=== PATIENT | male | born 1955 | race Caucasian/White ===

== ENCOUNTER 2018-12-18 20:33 | Inpatient (IN) | payer MEDICARE ==
[~2018-12-18] VITALS: Ht 188 cm; Wt 111.7 kg
--- NOTE | 2018-12-18 20:45 | NUR ---
PT. BIB SISTER WITH C/O LEFT SIDE CHEST PAIN X20 [employer]. SISTER REPORTS PT. TOLD HER IS CHEST WAS HURTING AND HE WAS CLUCHING HIS CHEST. REPROTS PT. HAS A HX ASBERGERS DISEASE AND IS NOT ABLE ALWAYS FEEL PAIN AND/OR BE ABLE TO DESCRIBE IT. STATES HE HAD A BYPASS JULY 2017. PT. STATES "FEELS LIKE SOMETHING IS POKING ME IN MY CHEST". DENIES FEELING SOB OR DIZZY. PT. UNABLE TO RATE THE PAIN ON SCALE 0-10. PT. AAOX4, TALKING AND RESPONDING APPROPRIATELY, BREATHING E/U. IN MODERATE DISTRESS, POINTING TO CHEST. PLACED ON FULL FURNACE CLERK, O2 PROVIDED AT 2L VIA NC. DR. HEMPHILL AT BEDSIDE FOR MSE.
[2018-12-18 21:17] LABS: BASOPHIL % 0.5 % (0-2); PLATELET COUNT 219 x10^3mcL (130-400); RED CELL DISTRIBUTION WIDTH 12.2 % (11.5-14.5)
--- NOTE | 2018-12-18 21:17 | NUR ---
NITRO SL AND NITRO PASTE GIVEN. PATIENT STATES HE IS UNSURE IF ITS HELPING PAIN. STATES CHEST PAIN "COMES AND GOES". SISTER AT BEDSIDE. WILL CONTINUE TO MONITOR.
[2018-12-18 21:24] LABS: CALCIUM 9.9 mg/dL (8.5-10.1); CARBON DIOXIDE 31.1 mmol/L (21-32); CREATININE SERUM 1.4 mg/dL (0.7-1.3)
[2018-12-18 21:38] LABS: ALBUMIN 3.3 g/dL (3.4-5.0); BILIRUBIN TOTAL 0.43 mg/dL (0.20-1.00); TOTAL PROTEIN, SERUM 7.6 g/dL (6.4-8.2)
--- NOTE | 2018-12-18 21:45 | NUR ---
PT. LAYING ON GURNEY IN POSITON OF COMFORT. BREATHING E/U. NOT IN ANY APPARENT DISTRESS AT THIS TIME. REPORTS CHEST PAIN IS STILL THERE. CALL LIGHT IN REACH, SISTER AT BEDSIDE, WILL CONTINUE TO MONITOR.
--- NOTE | 2018-12-18 22:10 | NUR ---
PT STATES "IT FEELS LIKE THE CHEST PAIN IS BETTER." WILL CONTINUE TO MONITOR.
--- NOTE | 2018-12-18 22:53 | NUR ---
PT. PROVIDED URINAL FOR URINE SAMPLE.
[2018-12-18] MEDS ORDERED: LIPI20 (22:54)
[2018-12-18] MEDS ORDERED: TOPROL XL25 MG (22:55)
[2018-12-18] MEDS ORDERED: KEPPRA1000 M1 (22:55)
[2018-12-18] MEDS ORDERED: AMIODARONE HCL200 MG (22:55)
[2018-12-18] MEDS ORDERED: LAMOTRIGINE150 M1 (22:55)
[2018-12-18] MEDS ORDERED: LASIX40 MG (22:55)
[2018-12-18] MEDS ORDERED: K-TAB10 MEQ (22:55)
[2018-12-18] MEDS ORDERED: ASPIR 8181 MG (22:56)
[2018-12-18] MEDS ORDERED: GINKGO BILOBA120 M1 (22:56)
[2018-12-18 23:09] LABS: MAGNESIUM 2.5 mg/dL (1.8-2.4); PHOSPHOROUS 2.6 mg/dL (2.5-4.9)
[2018-12-18 23:10] LABS: CHOLESTEROL/HDL RATIO 2.9
--- NOTE | 2018-12-18 23:15 | NUR ---
PT. STATES HE IS UNABLE TO PROVIDE SAMPLE AT THIS TIME.
--- NOTE | 2018-12-18 23:20 | NUR ---
REPORT GIVEN TO FOZIA DIAZ FOR FURTHER CARE OF PATIENT. ALL QUESTIONS AND CONCERNS ADDRESSED.
--- NOTE | 2018-12-18 23:36 | NUR ---
RECEIVED PT FROM ED VIA [facility], CAME IN DUE TO CHEST PRESSURE. AAOX3-4. ABLE TO FOLLOW SIMPLE COMMANDS. C/O THROBBING HEADACHE AND DIZZINESS. PUPILS ARE REACTIVE TO LIGHT, HAS HISTORY OF ASPERGER DISEASE. NO SOB NOTED, LUNG SOUNDS CTA. ON 2LPM/NC, O2 SAT=98%. C/O 6/10 MID PRESSURE CHEST PAIN, NON-RADIATING, SB W/ BBB ON THE MONITOR, HR AT 55. DENIES NUMBNESS/TINGLING SENSATION ON THE EXTREMITIES. W/ TRACE EDEMA ON BLE. C/O GAS IN THE ABDOMEN, LAST BM TODAY, DENIES ABDOMINAL PAIN/NAUSEA/VOMITING. IV SITE PATENT AND INTACT. PADDED SIDE RAILS UPX2. CALL LIGHT ON REACH. BED ALARM ON. HOB ELEVATED AT 30 DEG. ENDORSED TO PRIMARY NURSE ROBERTOILE FOR CONTINUITY OF CARE
[2018-12-18 23:41] VITALS: BP 138/77
--- NOTE | 2018-12-18 23:45 | NUR ---
PATIENT STATES HE DOES NOT WANT ANY PRN MEDICATION AT THIS TIME FOR HIS HEADACHE OR CHEST PAIN. PATIENT STATES HE JUST WANTS TO REST. BED LOCKED AND IN LOWEST POSITION. CALL LIGHT AND BEDSIDE TABLE WITHIN REACH. WILL CONTINUE TO MONITOR.
[2018-12-18 23:52] VITALS: Ht 188 cm; Wt 111.7 kg
[2018-12-19 05:20] VITALS: BP 113/69
--- NOTE | 2018-12-19 06:32 | NUR ---
PATIENT IS AWAKE. REPORTS HE HAS A HEADACHE, BUT DOES NOT WANT TYLENOL. NITRO PATCH ON LEFT CHEST REMOVED AT THIS TIME. IV INFUSING TO LH WITHOUT ERYTHEMA OR INFILTRATION. BED LOCKED AND IN LOWEST POSITION. CALL LIGHT AND BEDSIDE TABLE WITHIN REACH. WILL ENDORSE CARE TO MORNING NURSE.
[2018-12-19 06:42] LABS: CALCIUM 8.8 mg/dL (8.5-10.1); CARBON DIOXIDE 32.3 mmol/L (21-32); CREATININE SERUM 1.3 mg/dL (0.7-1.3); POTASSIUM SERUM 3.3 mmol/L (3.5-5.1)
--- NOTE | 2018-12-19 08:17 | NUR ---
DAUGHTER HERE VISITING AND ASKED FOR THE PLAN FOR PATIENT. UPDATED. WILL WANT TO SPEAK WITH MD. PATIENT UPRIGHT HAVING BREAKFAST IN BED. SCDS APPLIED. DENIES ANY CP OR SOB. O2 AT 2LPM IN USE VIA NC.
[2018-12-19 10:28] VITALS: BP 113/74
--- NOTE | 2018-12-19 11:46 | NUR ---
ASSISTED OOB TO CHAIR. GOOD STRENGTH. DENIES ANY CP. FAMILY AT BEDSIDE.
[2018-12-19 12:22] VITALS: BP 134/68
--- NOTE | 2018-12-19 13:55 | NUR ---
WATCHING TV. SISTER AT BEDSIDE. DENIES ANY CP
--- NOTE | 2018-12-19 15:15 | NUR ---
PATIENT AND FAMILY WISH TO GO AMA. MD KNIGHT SPOKE TO THE PATIENT. HEPLOCK REMOVED. PATIENT NOT IN ANY DISTRESS. SON STATED THEY WILL GIVE THE KEPPRA AT HOME. WHEELED OFF FLOOR WITH DONATO SALAS ESCORTING.
== END 2018-12-19 15:55 | disposition left against medical advice (07) | DRG 205 ==
LOC: ED 20:33 → DU 22:25
PROVIDERS: Emergency Medicine; ADMIT General Practice
DX: M94.0 Chondrocostal junction syndrome [Tietze] (principal); N17.0 Acute kidney failure with tubular necrosis; F84.5 Asperger's syndrome; E87.6 Hypokalemia; K21.9 Gastro-esophageal reflux disease without esophagitis; E78.5 Hyperlipidemia, unspecified; I10 Essential (primary) hypertension; I48.91 Unspecified atrial fibrillation; G40.909 Epilepsy, unspecified, not intractable, without status epilepticus; I25.10 Atherosclerotic heart disease of native coronary artery without angina pectoris; Z79.82 Long term (current) use of aspirin; Z68.30 Body mass index [BMI] 30.0-30.9, adult; Z95.1 Presence of aortocoronary bypass graft
CPT/HCPCS: 83880; C9113; J2270; J2405; J7030